=== PATIENT | female | born 1965 | race Caucasian/White ===

== ENCOUNTER 2016-09-11 06:41 | Day surgery (SDC) | payer BC ==
[~2016-09-11] VITALS: Ht 165.1 cm; Wt 76.0 kg
[~2016-09-11 06:41] MED LIST: BELVIQ10 MG PO; CIPRO500 MG PO; CLARITIN,ALAVAR10 MG PO; COUMADIN5 MG PO; IBUPROFEN600 MG PO; LANSOPRAZOLE30 MG PO; LEVOTHYROXINE112 MCG PO; LEVOTHYROXINE150 MCG PO; LO-DOSE ASPIRIN81 M2 PO; LOVENOX80 MG/0.8 SC; MIRAPEX0.25 MG PO; NABUMETONE500 MG PO; NASONEX17 GM BOTH NARES; NEXIUM40 MG PO; PERCOCET 5/31 TABLET PO; REQUIP1 MG PO; ROPINIROLE HCL1 MG PO; SINGULAIR10 MG PO; TIROSINT112 MCG PO; XYZAL5 MG PO; ZOFRAN4 MG PO; ZYRTEC10 M2 PO
[2016-09-11 07:32] VITALS: BP 118/59
[2016-09-11 10:39] VITALS: BP 145/45
[2016-09-11 11:50] VITALS: BP 131/66
== END 2016-09-11 12:05 | disposition home or self-care (01) ==
LOC: SDC 06:41
PROC: 0CBS8ZZ Excision of Larynx, Via Natural or Artificial Opening Endoscopic (ICD-10-PCS; principal; 2016-09-11)
DX: J38.7 Other diseases of larynx (principal); R07.0 Pain in throat; K21.9 Gastro-esophageal reflux disease without esophagitis; F17.200 Nicotine dependence, unspecified, uncomplicated; Z88.1 Allergy status to other antibiotic agents
CPT/HCPCS: 88304; 99202; J0330; J1100; J2250; J2405; J2710; J3010; J7120